=== PATIENT | male | born 1990 | race Asian ===

== ENCOUNTER 2018-08-03 03:31 | Emergency (ER) | payer MEDICAID ==
[~2018-08-03] VITALS: Ht 180.3 cm; Wt 117.9 kg
[2018-08-03] MEDS ORDERED: ALBUTEROL SULF 2.5 MG/0.5ML(0.5%) NEB SOLN NEB ONE (04:00)
[2018-08-03] MEDS ORDERED: IPRATROPIUM BROM 0.5 MG/2.5ML INH SOL NEB ONE (04:00)
[2018-08-03 07:08] VITALS: BP 132/102
== END 2018-08-03 07:22 | disposition home or self-care (01) ==
LOC: ER 03:35
DX: J45.901 Unspecified asthma with (acute) exacerbation (principal)
CPT/HCPCS: 71045; 94640; 99283; J7611; J7644